=== PATIENT | female | born 1960 | race Caucasian/White ===

== ENCOUNTER 2024-06-14 08:25 | Day surgery (SDC) | payer MEDICARE, MEDICAID, SELFPAY ==
[2024-06-07 10:32] VITALS: BMI 44.3
[2024-06-14] VITALS (14 sets, daily range): BP systolic 102–135; BP diastolic 49–84; PULSE 60–71; RESP 14–22; TEMP 36.1–36.6; O2SAT 94–100; BMI 45.2; BMI 48.2
--- NOTE | 2024-06-14 06:00 | DI.RAD.S_ITS ---
PROCEDURE: XR SHOULDER LT 1V INDICATIONS: post-op TECHNIQUE: 1 views of the shoulder were acquired. COMPARISON: O Outside Film, CR, XR SHOULDER 2+ VIEWS RIGHT, 03/20/2024, 15:11. FINDINGS: Evaluation is markedly limited on a single view. Within these limitations, left reverse total shoulder arthroplasty hardware is intact with anatomic alignment. Postsurgical changes about the left shoulder. Left lung volume is low with atelectasis. IMPRESSION: Evaluation is markedly limited on a single view. Within these limitations, left reverse total shoulder arthroplasty hardware is intact with anatomic alignment. Dictated by: Rashard Redmond M.D. on 06/14/2024 at 16:22 Approved by: Rashard eRdmond M.D. on 06/14/2024 at 16:24
[2024-06-14] MEDS: LACTATED RINGERS 1,000 ML 42 ML IV ×2 (09:50→13:27)
--- NOTE | 2024-06-14 11:10 | PM.PREOP ---
Pre-operative Note Interval Note History & Physical reviewed/Exam performed by Physician: Yes Changes to H&P: No
--- NOTE | 2024-06-14 11:11 | PM.PREOP ---
Pre-operative Note Interval Note History & Physical reviewed/Exam performed by Physician: Yes Changes to H&P: No
--- NOTE | 2024-06-14 12:13 | SUR.PREOP ---
Block start time [1148] . Monitoring initiated and maintained throughout procedure. Oxygen and medications given per anesthesiologist instructions. Patient remained stable throughout procedure, no adverse reactions noted. Block end time [1210]. Block unsuccessful. No medications given
[2024-06-14] MEDS: CEFAZOLIN VIAL 3 GM in SODIUM CHLORIDE 0.9% 100 ML IV (12:21)
[2024-06-14] MEDS: TRANEXAMIC ACID 1,000 MG VIAL 1000 MG INJ (12:49)
--- NOTE | 2024-06-14 13:08 | SUR.OPER ---
Beach chair with Malinan/Kalen shoulder positioner. Lower body on padded OR bed. Head in foam padded head cradle, secured with straps. Non-operative arm padded with gel and secured across abdomen with tape. Pillow under knees. Safety belt at thigh. Cloth tape over blanket over lower legs. Lower legs secured with tape. Heels free floating.
[2024-06-14] MEDS: ROPIVACAINE/EPI/CLONIDINE/KET 50 ML SYRINGE INJ (13:28)
--- NOTE | 2024-06-14 14:37 | P.OP_ITS ---
Operative Date/Time/Diagnoses Date of procedure: 06/14/24 Time of procedure: 14:37 Pre-op diagnosis: Left glenohumeral arthritis Post-op diagnosis: same Procedure & Clinicians Procedure: Left reverse total shoulder arthroplasty Same procedure as scheduled: Yes Indications: Indications: This is a 64-year-old female who has severe glenohumeral arthritis. Symptoms have been present for years, insidious onset. Patient has failed a reasonable attempt at conservative therapy. After extensive discussion in clinic, they wished to go forward with surgery. Risks and benefits were described including the risk of infection, bleeding, damage to internal structures including nerves. We also discussed the risk of failure of surgery and the need for revision surgery as well as the risk of anesthesia. The patient expressed understanding with these risks and wished to go forward with surgery. Surgeon: Ronald Johnson [employer] Testing: Shanna Weiss Anesthesia Type: General Operative Notes Findings: Findings: Osteoarthritis of the glenoid and humeral head as well as a defient rotator cuff as noted on preoperative imaging and under direct visualization Closure Type: primary Specimen(s): none sent Prosthetic devices, grafts, tissues, transplants, or devices: Tornier implants Base plate: standard 25 mm, 15 degree wedge Glenosphere: Standard 36 mm Stem: Perform 3 Poly: +0 concentric Estimated Blood Loss (mL): 100 Blood products transfused: none Procedure in detail: Patient was seen in the preoperative holding unit. The correct left shoulder was identified and marked with my initials. Again we discussed the risks and benefits of surgery and they wished to go forward with surgery. The patient was brought back to the operating room and placed supine on the operating table. Smooth endotracheal intubation was performed by anesthesia. All prominences were padded and they were placed into the beach chair position. Intravenous antibiotics were given. The left shoulder was then prepped with the standard sterile preparation and draping. A time-out was then performed in my initials were again identified on the correct shoulder. 1 g of IV tranexamic acid was given. A standard deltopectoral incision was made. Skin flaps were made. The cephalic vein was identified and retracted laterally. This was protected throughout the remainder of the case. Sharp dissection was made along the deltoid, subacromial and subcoracoid space to release adhesions. The conjoined tendon was identified and the axillary nerve was palpated and continuous using the tug test. It was protected throughout the remainder of the case. A brown retractor was placed underneath the deltoid muscle and a darach retractor underneath the conjoint tendon. The subscapularis muscle was ntoed to be intact. The anterior circumflex artery and associated veins on the lower border of the subscapularis were identified and tied off using 0-Vicryl. The biceps tendon was identified in the bicipital groove. This was released from its sheath, and taken from its origin on the glenoid and tied into the pectoralis tendon for a solid tenodesis. We then began a subscapularis peel. The subscapularis was tagged with an Ethibond suture. A 360 degree circumferential release of the subscapularis was performed with protection of the axillary nerve. The coracohumeral ligament was released at the base of the coracoid. The shoulder was then dislocated. Osteophytes were removed using combination of rongeur and osteotome. The rotator cuff was noted to be insufficient. An intramedullary guide was used set at version of 20?. Using an oscillating saw a conservative humeral head cut was made. Impaction reamers were reamed up to a size 3 stem with a built-in angle 135?. A neck protector was placed. Attention was then turned to the glenoid. After retracting the humeral head posteriorly a circumferential release was performed of the capsule with protection of the axillary nerve. The labrum was then released starting at the biceps anchor and going around the rim a small amount of triceps was released from the inferior glenoid. A center guide pin was then placed using the guide, followed by Reamer. After adequate cartilage was removed the boss was reamed and the centeral hole was drilled and measured. The base plate was then implanted and screwed into place. The peripheral screws were then sequentially drilled, measured, and placed. A 36 standard glenosphere was then selected and screwed into place onto the base plate. Turning back to the humerus, the humeral head was delivered and trialed with a 0 concentric. The arm was taken through range of motion and this was felt to be stable. The trial was then removed and a dilute Betadine wash was then performed with 1 L of sterile saline. Before placing the final implant, drill holes were made in the bicipital groove for the subscapularis repair, and sutures were passed through the drill holes. The final stem was then impacted into the humerus. The shoulder was then reduced and again brought through range of motion and was felt to be stable. The subscapularis was then repaired using a modified racking hitch with nice loupes. The skin was closed with 2-0 vicryl and 3-0 Monocryl followed by Aquacel dressing. Patient was awoken from anesthesia and brought back to the postoperative recovery unit without issue. They were placed into a sling. Assisting participation: This operation could not have been safely performed (without compromising the technical results or length of the procedure) without the assistance of a skilled surgical technology instructor. The surgical technology instructor was medically necessary for proper positioning, retraction and manipulation of instruments, proper exposure, graft prep, and manipulation of tissue. Complications: none Post-operative Condition: stable Disposition: PACU Plan for aftercare: Postoperative instructions: Sling to remain on for 6 weeks. No external rotation past neutral for 6 weeks. Okay for the sling to come off for shower. Okay to shower over the Aquacel dressing. If any water gets underneath the dressing, remove the dressing. First postoperative visit in 2 weeks.
[2024-06-14] MEDS: ONDANSETRON 4 MG/2 ML INJ IV (14:58)
[2024-06-14] MEDS: hydrOXYzine 50 MG/ML INJ 25 MG IM (14:58)
[2024-06-14] MEDS: OXYCODONE IR 5 MG TABLET PO ×3 (14:58→17:58)
--- NOTE | 2024-06-14 17:18 | SUR.PHASEII ---
Dr Johnson aware that patient requiring oxygen via nc at 2l to keeps saturation above 90. Placed transfer orders and floor aware that patient will stay overnight. Up to floor and report received by Syd PARTIDA. No additional needs required
[2024-06-14] MEDS: LACTATED RINGERS 1,000 ML 100 ML IV (17:25)
[2024-06-14] MEDS: VENLAFAXINE 37.5 MG TABLET 112.5 MG PO (20:36)
[2024-06-14] MEDS: PRAMIPEXOLE 0.25 MG TABLET 0.5 MG PO (20:36)
[2024-06-14] MEDS: RANOLAZINE 500 MG TAB.ER.12H 1000 MG PO (20:36)
[2024-06-14] MEDS: CEFAZOLIN VIAL 1 GM in SODIUM CHLORIDE 0.9% 100 ML IV (20:37)
[2024-06-14] MEDS: PANTOPRAZOLE DR 20 MG TABLET PO (20:37)
[2024-06-14] MEDS: GABAPENTIN 400 MG CAPSULE PO (20:37)
[2024-06-14] MEDS: ASPIRIN EC 81 MG TABLET PO (20:37)
[2024-06-14] MEDS: glipiZIDE 5 MG TABLET PO (20:37)
[2024-06-14] MEDS: METFORMIN HCL 500 MG TABLET 1000 MG PO (20:37)
[2024-06-14] MEDS: ATORVASTATIN 20 MG TABLET PO (20:37)
[2024-06-14] MEDS: SENNOSIDES 8.6 MG TABLET 17.2 MG PO (20:37)
[2024-06-14] MEDS: DOCUSATE 100 MG CAPSULE PO (20:37)
[2024-06-14] MEDS: CIPROFLOXACIN 250 MG TABLET PO (20:37)
[2024-06-14] MEDS: ACETAMINOPHEN 325 MG TABLET PO (23:30)
[2024-06-14] MEDS: TRAMADOL 50 MG TABLET PO (23:30)
[2024-06-15] MEDS: CEFAZOLIN VIAL 1 GM in SODIUM CHLORIDE 0.9% 100 ML IV (02:57)
[2024-06-15] MEDS: LACTATED RINGERS 1,000 ML 100 ML IV (02:57)
[2024-06-15 05:19] LABS: Add Manual Diff / Slide Review NO; Basophils Absolute Auto 100 /uL (0-100); Basophils Percent Auto 0.4 % (0-2); Eosinophils Absolute Auto 0 /uL (0-450); Eosinophils Percent Auto 0.1 % (2-4); Hematocrit 29.3 % (36-46); Hemoglobin 9.5 g/dL (12.0-16.0); Lymphocytes Absolute Auto 800 /uL (1100-4500); Lymphocytes Percent Auto 4.5 % (25-40); Mean Corpuscular HGB Conc 32.5 % (30-36); Mean Corpuscular Hemoglobin 27.5 PG (26-34); Mean Corpuscular Volume 84.5 fL (80-100); Monocytes Absolute Auto 800 /uL (0-900); Monocytes Percent Auto 4.7 % (3-14); Neutrophils Absolute Auto 15600 /uL (1500-7000); Neutrophils Percent Auto 90.3 % (50-75); Platelet Count 252 X10^3/uL (150-400); Red Blood Cell Count 3.47 X10^6/uL (4.0-5.2); Red Cell Distribution Width 15.3 % (11.6-14.8); White Blood Cell Count 17.3 X10^3/uL (4.5-11.0)
[2024-06-15 05:32] LABS: Blood Urea Nitrogen 25 mg/dL (7-17); Calcium 8.5 mg/dL (8.4-10.2); Carbon Dioxide 20 mmol/L (22-32); Chloride 104 mmol/L (98-107); Estimated Glomerular Filt Rate 59 mL/min (>60); Glucose 219 mg/dL (80-110); HEMOLYSIS < 15 (0-50); Sodium 133 mmol/L (137-145)
[2024-06-15 05:38] LABS: Potassium 5.5 mmol/L (3.4-5.1)
[2024-06-15] MEDS: OXYCODONE IR 5 MG TABLET PO ×4 (05:57→15:48)
--- NOTE | 2024-06-15 06:16 | PC.NURSE ---
Oxycodone was placed on hold on 06/14. Contacted [facility] regarding this medication and they recommended contacting the MD to find out if it's ok to give. Dr. Aquino, chronometer tester for Dr. Johnson, ok'd to give medication.
[2024-06-15 07:00] VITALS: BP 129/78; PULSE 78; RESP 16; TEMP 36.2; O2SAT 98
[2024-06-15 08:30] VITALS: BP 129/68; PULSE 78
[2024-06-15] MEDS: DOCUSATE 100 MG CAPSULE PO (08:30)
[2024-06-15] MEDS: METOPROLOL ER 50 MG TABLET PO (08:30)
[2024-06-15] MEDS: RANOLAZINE 500 MG TAB.ER.12H 1000 MG PO (08:30)
[2024-06-15 08:31] VITALS: BP 129/68; PULSE 78
[2024-06-15] MEDS: VENLAFAXINE 37.5 MG TABLET 112.5 MG PO (08:31)
[2024-06-15] MEDS: EZETIMIBE 10 MG TABLET PO (08:31)
[2024-06-15] MEDS: AMLODIPINE 5 MG TABLET 10 MG PO (08:31)
[2024-06-15] MEDS: LOSARTAN 50 MG TABLET 100 MG PO (08:31)
[2024-06-15 08:32] VITALS: BP 129/68; PULSE 78
[2024-06-15] MEDS: ACYCLOVIR 400 MG TABLET 800 MG PO (08:32)
[2024-06-15] MEDS: carvediloL 12.5 MG TABLET 25 MG PO (08:32)
[2024-06-15] MEDS: ACETAMINOPHEN 325 MG TABLET PO ×2 (08:32→15:49)
[2024-06-15] MEDS: glipiZIDE 5 MG TABLET PO (08:32)
[2024-06-15] MEDS: CIPROFLOXACIN 250 MG TABLET PO (08:32)
[2024-06-15] MEDS: PANTOPRAZOLE DR 20 MG TABLET PO (08:32)
[2024-06-15] MEDS: ISOSORBIDE MONONITRATE ER 30 MG TABLET 120 MG PO (08:32)
[2024-06-15] MEDS: polyethylene glycoL 3350 17 GM POWD.PACK PO (08:33)
[2024-06-15] MEDS: ASPIRIN EC 81 MG TABLET PO (08:33)
[2024-06-15 08:56] VITALS: PULSE 77; RESP 14; O2SAT 99
[2024-06-15] MEDS: ALBUTEROL 2.5 MG/3 ML NEB (ADULT) INH (08:56)
--- NOTE | 2024-06-15 11:40 | PT.IIE ---
Current Diagnoses Sleep apnea, unspecified (06/14/24) Primary osteoarthritis, left shoulder (06/14/24) Surgery Performed Operation Date: 06/14/24 10:15 Actual Procedures p Total Shoulder Arthroplasty - Reverse with biceps tenodesis(Left) - Ronald Johnson MD Surgical History (Last Updated 06/05/24 @ 12:56 by Sonya Busby, RN) History of cardiac catheterization History of carpal tunnel release of both wrists History of surgery Hx of foot surgery Hx of heart artery stent (08/2017) Hx of repair of right rotator cuff Hx of right mastectomy (2012) Hx of tubal ligation Medical History (Last Updated 06/07/24 @ 10:36 by Sonya Busby, RN) Breast cancer, right CAD (coronary artery disease) Chronic pain syndrome Depression Diabetes Diabetic polyneuropathy GUTIERRES (dyspnea on exertion) Dyslipidemia Fibromyalgia GERD (gastroesophageal reflux disease) History of chest pain History of COVID-19 (~2021) HTN (hypertension) MANSI on CPAP Osteoarthritis Palpitations PSVT (paroxysmal supraventricular tachycardia) PTSD (post-traumatic stress disorder) Recurrent cold sores RLS (restless legs syndrome) Physical Therapy Inpatient Evaluation/Re-Eval M1 PT/OT-IP Prior Functional Status Start: 06/15/24 08:30 Freq: NEEDED Status: Active Protocol: Document 06/15/24 11:40 DLM (Rec: 06/15/24 12:16 DLM [id number]) Medical Review Prior Functional Status Medical History Reviewed Yes Diet/Fluid Consistency Regular Communication WNL Mobility and Gait Independent gait with cane, has bilateral knee pain and can not feel her feet, she reports right knee catches sometimes. Her distances of gait are limited by her knee pain Activities of Daily Living and IADL's Assisted by her Daughter Social History Household Members children Living Arrangements House Number of Floors (Floors) One Floor Number of Stairs To Enter/Railing? ramp Home Environment Standard Height Toilet,High Toilet Home Equipment Straight Cane,Lift Recliner, Bed Rails Additional Social History Comment she gets out of bed on left side with rail M2 PT-IP Current Condition Start: 06/15/24 08:30 Freq: NEEDED Status: Active Protocol: Document 06/15/24 11:40 DLM (Rec: 06/15/24 12:16 DLM [id number]) Physical Therapy Current Condition Current Condition Evaluation Date 06/15/24 Treatment Diagnosis left reverse total shoulder arthroplasty Onset Date 06/14/24 M3 PT-IP Subjective Start: 06/15/24 08:30 Freq: NEEDED Status: Active Protocol: Document 06/15/24 11:40 DLM (Rec: 06/15/24 12:16 DLM [id number]) Subjective Physical Therapy Visit Type Type Initial Evaluation Visit Start Time 11:00 Visit Stop Time 11:40 Notes 40 min Number of SEAT BUILDER Visits 0 Physical Therapy Visit Comments Patient Comments Her Daughter helps her at home . She has a lift recliner she can stay in at home. She has out-pt Physical Therapy scheduled for after discharge. Patient Goals Go home with family help. Therapy Pain Assessment Pain When Pain Assessed At Rest Pain Present Pain Present Pain Reported Location Left Arm Intensity 7 Scale Used Numeric (0 - 10) Description Aching,Radiating,Tender Pain Behaviors Facial Grimacing,Guarding Pain Management Techniques Apply Cold,Re-positioning, Timing of Activity with Medications M4 PT-IP Mobility and Gait Start: 06/15/24 08:30 Freq: NEEDED Status: Active Protocol: Document 06/15/24 11:40 DLM (Rec: 06/15/24 12:16 DLM [id number]) PT-Bed Mobility Assessment Sit to Supine Sit to Supine Independent Scooting Scooting to Edge of Bed Independent PT-Transfer Assessment Sit to and From Stand Sit to and from Stand Standby Assistance,Use of Upper Extremities Equipment Transfer Assistive Device Gait Belt Transfers Transfer Destination Bed,Toilet Transfer Technique Stand Step Pivot Transfer Ability Level of Assist Contact Guard Assistance,Use of Upper Extremities Comments Mobility Comments Pt up in recliner at the start of this visit. She gets out of the left side of bed at home so plans to use her lift recliner at discharge. Pt up to toilet to urinate during this visit. She needs min assist to get out of the recliner but only CG/SBA to stand up from the bed or the toilet with grab bar on wall. She does not have her cane present at the hospital. Gait Assessment Gait Gait Assistance Required: Contact Guard Assist,Minimum Assistance Distance (Feet) 60 Assistive Devices Assistive Device Gait Belt Gait Deviations General Gait Pattern Antalgic,Wide Based Gait Factors Limiting Gait Function Factors Limiting Gait Function Decreased Activity Tolerance, Decreased Sensation,Pain,Poor Balance Comments Gait Comments She needs hand held assist since she does not have her cane. She can also hold the rail on the bed or the wall of the bathroom for support. No light-headedness nor nausea during this visit. She ambulated to and from the toilet and did two laps to the curry and back with seated rest break between gait trials . Pt returned to the bed to rest after activity. Stair Climbing Assessment Comments Stair Climbing Comments she uses a ramp to enter the house PT-Balance Assessment Sitting Balance and Reactions Static Sitting Balance Ability Normal Dynamic Sitting Balance Ability Normal Standing Balance and Reactions Static Standing Balance Ability Good Dynamic Standing Balance Ability Fair M5 PT-IP Objective Assessments Start: 06/15/24 08:30 Freq: NEEDED Status: Active Protocol: Document 06/15/24 11:40 DLM (Rec: 06/15/24 12:16 DLM [id number]) Orientation Orientation/Cognition Level of Alertness Alert Orientation Name,Age,Birthday,Month,Date, Year,Day of Week,Place, Situation Language Function Ability No Deficits Noted Safety Awareness Understands Safety Issues Memory Description No Deficits Noted Gross Range of Motion Upper Extremity ROM Assessment Left Impaired Impairments post-op precautions with UE in sling, no ROM of shoulder attempted this visit Lower Extremity ROM Assessment Within Functional Limits Impairments knee pain with ROM bilaterally Strength Upper Extremity Strength Assessment Left Impaired Shoulder no functional use post-op with sling in place Elbow able to hang it at side, needs assist to flex elbow with pain reported Wrist can move actively Hand can move actively Lower Extremity Strength Assessment Within Functional Limits Knee hx of bilateral knee pain with arthritic joint changes, effects sit to richie Coordination Assessment Gross Coordination Gross Coordination WNL Sensation Assessment Sensation Gross Sensation Right UE Impaired,Left UE Impaired,Right LE Impaired, Left LE Impaired Sensation Description Numbness Comments Sensation Comments hx of neuropathy with numbness in her feet and intermittently in her finger tips, pt reports she can not feel the floor. No numbness reported in left hand at this time. Muscle Tone Muscle Tone WNL Yes M6 PT-IP Treatment Start: 06/15/24 08:30 Freq: NEEDED Status: Active Protocol: Document 06/15/24 11:40 DLM (Rec: 06/15/24 12:16 DLM [id number]) Physical Therapy Treatment Education Education Provided Precautions,Weight Bearing Status,Safety Other Treatments Other Treatment Performed educated pt in left shoulder precautions, adjusted sling for comfort and better positioning, passive elbow flexion with UE at side, assisted elbow flexion ROM as tolerated by pain, pt moved wrist and hand actively M7 PT-IP Assessment and Plan Start: 06/15/24 08:30 Freq: NEEDED Status: Active Protocol: Document 06/15/24 11:40 DLM (Rec: 06/15/24 12:16 DLM [id number]) PT Summary Assessment and Plan Potential Rehabilitation Potential Good Status of Condition at Evaluation Evolving Summary Impairments Pain,ROM,Strength,Balance, Sensation,Bed Mobility, Transfers,Gait,Activity Tolerance Progress Towards Goals Safe For Discharge Assessment Summary Claudia is alert and sitting up in the recliner this visit. She got up earlier today with nursing for breakfast. She describes bilateral knee pain that effects her gait. She uses a cane at baseline. She was able to ambulate with hand held assist this visit. Pt returned to bed to rest after activity. Positioned left UE to manage her pain and applied ice pack. She appears safe to discharge home today with assist from her Daughter who is her caregiver. Recommend she use her lift recliner instead of the bed until she can progresses to safely get out of bed on left side. Also recommend she use her cane for gait to decrease her fall risks. No further skilled Physical Therapy needed during this admission. Reviewed case with Occupational Therapy for continuity of care. Frequency of Treatment Frequency Of Treatment Discharge Treatment Plan Other Recommendations and Next Treatment training completed this visit Focus Precautions Shoulder Precautions Sling,Internal Rotation to Body,No External Rotation,No Abduction Brace sling in place left shoulder, no active use of left shoulder post-op Other Precautions fall risk due to arthritic knee joints and decreased sensation in feet Weight Bearing Status Weight Bearing Status Non-Weight Bearing Allowed Weight Bearing Amount (enter % left shoulder or #) (%) Recommendations To Nursing Amount of Assist Needed 1 Person Assist Discharge Recommendations PT Discharge Recommendations Home with Assistance, Outpatient PT Other Discharge Recommendations Her Daughter is able to assist her per patient Transportation Needs at Discharge Private Vehicle
--- NOTE | 2024-06-15 13:52 | OT.IP.EVAL ---
Current Diagnoses Sleep apnea, unspecified (06/14/24) Primary osteoarthritis, left shoulder (06/14/24) Surgery Performed Operation Date: 06/14/24 10:15 Actual Procedures p Total Shoulder Arthroplasty - Reverse with biceps tenodesis(Left) - Ronald Johnson MD Past Medical History (Last Updated 06/07/24 @ 10:36 by Sonya Busby, RN) Breast cancer, right CAD (coronary artery disease) Chronic pain syndrome Depression Diabetes Diabetic polyneuropathy GUTIERRES (dyspnea on exertion) Dyslipidemia Fibromyalgia GERD (gastroesophageal reflux disease) History of chest pain History of COVID-19 (~2021) HTN (hypertension) MANSI on CPAP Osteoarthritis Palpitations PSVT (paroxysmal supraventricular tachycardia) PTSD (post-traumatic stress disorder) Recurrent cold sores RLS (restless legs syndrome) Surgical History (Last Updated 06/05/24 @ 12:56 by Sonya Busby, RN) History of cardiac catheterization History of carpal tunnel release of both wrists History of surgery Hx of foot surgery Hx of heart artery stent (08/2017) Hx of repair of right rotator cuff Hx of right mastectomy (2012) Hx of tubal ligation Occupational Therapy Inpatient Evaluation/Re-Eval M1 PT/OT-IP Prior Functional Status Start: 06/15/24 08:30 Freq: NEEDED Status: Active Protocol: Document 06/15/24 13:54 [facility] (Rec: 06/15/24 14:08 [facility] [id number]) Medical Review Prior Functional Status Medical History Reviewed Yes Diet/Fluid Consistency Regular Communication WNL Mobility and Gait Independent gait with cane, has bilateral knee pain and can not feel her feet, she reports right knee catches sometimes. Her distances of gait are limited by her knee pain Activities of Daily Living and IADL's Assisted by her Daughter Social History Household Members children Living Arrangements House Number of Floors (Floors) One Floor Number of Stairs To Enter/Railing? ramp Home Environment Standard Height Toilet,High Toilet Home Equipment Straight Cane,Lift Recliner, Bed Rails Additional Social History Comment she gets out of bed on left side with rail M2 OT-IP Current Condition Start: 06/15/24 13:54 Freq: Status: Active Protocol: Document 06/15/24 13:54 [facility] (Rec: 06/15/24 14:08 [facility] [id number]) Occupational Therapy Current Condition Current Condition Evaluation Date 06/15/24 Treatment Diagnosis S/P L TSA Diagnosis Onset Date 06/14/24 Post Operative Precautions Shoulder Precautions Sling,No External Rotation Weight Bearing Status Weight Bearing Status Non-Weight Bearing M3 OT- IP Subjective and Pain Start: 06/15/24 13:54 Freq: Status: Active Protocol: Document 06/15/24 13:54 [facility] (Rec: 06/15/24 14:08 [facility] [id number]) OT- Subjective Occupational Therapy Visit Type Type Initial Evaluation Visit Start Time 13:25 Visit Stop Time 13:52 Occupational Therapy Visit Comments Patient Comments Pt agreed to get up to brush her teeth. Patient/Caregiver Goals TO go home. OT Pain Assessment Pain When Pain Assessed During Mobility Pain Present Pain Present Pain Reported Location Left Arm Intensity 6 Scale Used Numeric (0 - 10) M4 OT- IP ADL's Start: 06/15/24 13:54 Freq: Status: Active Protocol: Document 06/15/24 13:54 [facility] (Rec: 06/15/24 14:08 [facility] [id number]) OT [id number] Comments OT Self-Feeding Comments set-up assist OT ADL-Grooming General Evaluation Grooming Ability Standby Assistance Areas Needing Assistance Retrieving/Set-up of Grooming Items Comments OT Grooming Comments Able to do whiel standing at the sink. OT ADL-Oral Care General Eval Oral Care Ability Independent OT ADL-Dressing General Eval Upper Body Dressing Ability Maximum Assistance Lower Body Dressing Ability Maximum Assistance Comments OT Dressing Comments MAX A for sling management needs and to readjust the straps. Pt's daughter to assist with all ADL needs at home. OT ADL-Toileting Comments OT Toileting Comments Pt states able to use a bidet at daugther's house. Pt may benefit from a BSC as has to go to the bathroom often at night. OT ADL-Bathing Comments OT Bathing Comments Pt to have assist. M5 OT- IP IADL's Start: 06/15/24 13:54 Freq: Status: Active Protocol: Document 06/15/24 13:54 [facility] (Rec: 06/15/24 14:08 [facility] [id number]) OT-Instrumental Activities of Daily Living Home Safety Awareness Awareness of Need for Assistance at Home Good Awareness Ability to Problem Solve Emergency Able to Problem Solve Situations Medication Management Medication Management Caregiver Administers Money Management Money Management Caregiver Provides Assistance Meal Preparation Meal Preparation Caregiver Provides Assist Postpartum Nurse Postpartum Nurse Caregiver Provides Assist M6 OT- IP Functional Cognition Start: 06/15/24 13:54 Freq: Status: Active Protocol: Document 06/15/24 13:54 [facility] (Rec: 06/15/24 14:08 [facility] [id number]) Cognitive Factors Limiting Selfcare Function Cognitive Ability Level of Alertness Alert Patient Orientation Name,Age,Birthday,Month,Date, Year,Day of Week,Place, Situation Attention Span Ability Capable of Focused Attention, Capable of Sustained Attention Ability to Follow Commands Able to Follow One Step Commands Cognitive Comments Cognitive Assessment Comments Pt able to follow commands for ADL and mobility needs. OT- Vision and Hearing OT- Hearing Assessment OT- Hearing Assessment WFL OT- Vision Assessment Visual Acuity Glasses For Reading Vision Assessment Comments Pt eyes delay when tracking. Pt states occasionally gets dizzy looking to the left at times. M7 OT- IP Mobility and Balance Start: 06/15/24 13:54 Freq: Status: Active Protocol: Document 06/15/24 13:54 [facility] (Rec: 06/15/24 14:08 [facility] [id number]) OT- Bed Mobility Assessment Supine to Sit Supine to Sit Assist Moderate Assistance OT-Transfer Assessment Sit to and From Stand Sit to and from Stand Minimal Assistance Transfers Transfer Ability Minimal Assistance Technique Transfer Destination Bed,Chair Transfer Technique Stand Step Pivot Devices Transfer Assistive Devices None,Gait Belt Comments Mobility Comments MODA so pt able to pull on the therapist's hand to pull herself up and assist to help get her trunk upright. CATRACHO to stand and KIPNUK assist for right arm to hang unto while walking in the room. Pt states has a cane at home she uses. OT- Balance Assessment Sitting Balance and Reactions Static Sitting Balance Ability Good Dynamic Sitting Balance Ability Good Standing Balance and Reactions Static Standing Balance Ability Good Dynamic Standing Balance Ability Fair M8 OT- IP Objective Assessments Start: 06/15/24 13:54 Freq: Status: Active Protocol: Document 06/15/24 13:54 [facility] (Rec: 06/15/24 14:08 [facility] [id number]) OT Gross Range of Motion Upper Extremity Range of Motion Assessment Right Impaired OT Strength Upper Extremity Strength Assessment Right Impaired M9 OT- IP Assessment and Plan Start: 06/15/24 13:54 Freq: Status: Active Protocol: Document 06/15/24 13:54 [facility] (Rec: 06/15/24 14:08 [facility] [id number]) OT Summary Assessment and Plan Potential Rehabilitation Potential Excellent Analytic Complexity at Evaluation Low Summary OT Impairments Pain,Range of Motion,Strength, Balance,Functional Mobility, Dressing,Toileting,Bathing, Toilet Transfers,Shower Transfers Progress Towards Goals Progressing Toward Goals Assessment Summary Pt low complexity and main barriers are pain, decreased balance, and will continue to need her daughter to assist with all her ADL and IADl needs. Able to readjust the sling for the pt and go over dressing needs. Pt to go home with 16/05 available assist and outpt PT. Pt looking to go home today. Pt would benefit from a BSC. Frequency of Treatment Frequency Of Treatment Discharge Discharge Recommendations Transportation Needs at Discharge Private Vehicle
--- NOTE | 2024-06-15 14:18 | CM.DANOTE ---
DCP Assessment Note: Pt is a 64yo female, resident of [place], is admitted for a L reverse TSA. Pt lives in a house with her daughter, son-in-law and grandchildren. Pt's Primary Care Provider is VENKAT Alejo and insurance is [facility] and Medicaid. Reviewed chart and team rounds for pt's medical status and initial discharge needs. DCP met w/patient at bedside; introduced self and role. Patient was found in chair, alert and oriented, cooperative with assessment. Pt confirmed living situation and good support in daughter who is also her in-home caregiver. Pt expressed preference in returning home when medically cleared. Pt declined a need for home health referral at this time. Per PT/OT, pt is being recommended to discharge home with assistance with caregiver. Plan: Anticipating discharge home with family when medically cleared, pt to follow up with outpatient PT. CM team will follow closely for coordination of discharge plans. FABIAN Bowers Discharge Planning/Care Management CM Discharge Assessment Start: 06/15/24 12:33 Freq: Status: Active Protocol: Document 06/15/24 12:33 MW (Rec: 06/15/24 12:34 MW [id number]) Discharge Planning Assessment Assigned Laundromat Manager JOSELINE Castle DPOA/Assigned Designee Name Jojo Alexis Contact Information [phone] Advance Directives? Yes Advance Directives on File No History Provided By Patient,Medical Record Has Patient been admitted in last 30 No days? Prior Living Arrangements House Household Members children Type of transporation used prior to Drives own vehicle admit Independent with ADL's Yes Is patient alert and oriented? Yes Caregiver for Another No DME Already Rented / Owned Cane Discharge Plan Home Referrals Initiated None needed Whiteboard Updated in Patient Room with Yes name and ext. # of Laundromat Manager Comment [phone] Please Provide Date Initial DC 06/15/24 Assessment Was Performed Next Review Type Continued Stay Review
--- NOTE | 2024-06-15 15:34 | P.DS_ITS ---
History of Present Illness History of Present Illness Chief complaint: OPB Narrative: Claudia is a pleasant 64 year old female who is POD#1 s/p left reverse total shoulder arthroplasty by Dr. Johnson. This morning patient states she is doing well, still having severe shoulder pain but feels that oral pain medication can control it well. She has been up once since surgery to walk and urinate, reports she felt good getting up but also felt a little weak and lethargic. Has post-op PT scheduled at [facility]. Lives at home w/ daughter and son in law who are willing and able to aid in patients post-op care. She has her post-op pain Rx at home already. Denies fever, chills, chest pain, SOB, nausea, vomiting. Operative Date/Time/Diagnoses Date of procedure: 06/14/24 Time of procedure: 14:37 Pre-op diagnosis: Left glenohumeral arthritis Post-op diagnosis: same Procedure & Clinicians Procedure: Left reverse total shoulder arthroplasty Same procedure as scheduled: Yes Indications: Indications: This is a 64-year-old female who has severe glenohumeral arthritis. Symptoms have been present for years, insidious onset. Patient has failed a reasonable attempt at conservative therapy. After extensive discussion in clinic, they wished to go forward with surgery. Risks and benefits were described including the risk of infection, bleeding, damage to internal structures including nerves. We also discussed the risk of failure of surgery and the need for revision surgery as well as the risk of anesthesia. The patient expressed understanding with these risks and wished to go forward with surgery. Surgeon: Ronald Johnson Box Office Attendant: Shanna Weiss Anesthesia Type: General Discharge Providers Provider Discharge Date: 06/15/24 Consults: 06/14/24 06:00 Consult to Anesthesiology Routine Comment: Consulting Provider: Anesthesiologist Reason for consultation: Regional block for post operative pain control 06/14/24 16:47 Consult to Discharge Planning Routine Comment: Consult to Occupational Therapy Evaluate & Treat Comment: Physician Instructions: Evaluate and treat Consult to Physical Therapy Evaluate & Treat Comment: Physician Instructions: Evaluate and Treat Discharge provider: Shanna Weiss PA-C Summary Hospital Course Discharge Diagnosis: stable s/p left reverse total shoulder arthroplasty Hospital Course: Hospital course complicated by SOB post-op, now resolved. Pt with known MANSI on CPAP and cardiac hx of 2 stents. Exam Vital Signs (past 8 hours): - 06/15/24 08:30 06/15/24 08:31 06/15/24 08:32 Pulse Rate 78 78 78 Respiratory Rate Blood Pressure 129/68 129/68 129/68 Pulse Oximetry Oxygen Delivery Method 06/15/24 08:56 Pulse Rate 77 Respiratory Rate 14 Blood Pressure Pulse Oximetry 99 Oxygen Delivery Method Room Air Oxygen Delivery Method Room Air Oxygen Flow Rate 2 Narrative Exam Narrative: Patient lying comfortably in bed during our interview today. No acute distress. AOx3, appears tired/sleepy during the interview however. Sling in place. Grossly normal alignment of the LUE with mild global shoulder swelling. 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 Gross sensation intact throughout the LUE. There is some bilateral lower extremity sensory loss, unchanged from prior to surgery, patient has known diabetic neuropathy pre-op. Calves soft and non-tender bilaterally. SCDs are on and functioning. Brisk capillary refill, pulses intact. Post-surgical Aquacel dressing clean, dry and intact over the left anterior shoulder without drainage. Objective Labs 06/15/24 05:04 06/15/24 05:04 Labs: Laboratory Results - last 24 hr 06/15/24 05:04 WBC 17.3 H RBC 3.47 L Hgb 9.5 L Hct 29.3 L MCV 84.5 MCH 27.5 MCHC 32.5 RDW 15.3 H Plt Count 252 Neut % (Auto) 90.3 H Lymph % (Auto) 4.5 L [place] % (Auto) 4.7 Eos % (Auto) 0.1 L Baso % (Auto) 0.4 Neut # (Auto) 46468 H Lymph # (Auto) 800 L [place] # (Auto) 800 Eos # (Auto) 0 Baso # (Auto) 100 Sodium 133 L Potassium 5.5 H Chloride 104 Carbon Dioxide 20 L BUN 25 H Creatinine 1.04 Estimated GFR 59 L BUN/Creatinine Ratio 24.0 H Glucose 219 H Calcium 8.5 PFSH Medical History (Updated 06/07/24 @ 10:36 by Sonya Busby RN) History of COVID-19 (~2021) Chronic pain syndrome Diabetic polyneuropathy Diabetes Recurrent cold sores GERD (gastroesophageal reflux disease) RLS (restless legs syndrome) PTSD (post-traumatic stress disorder) Breast cancer, right Depression Fibromyalgia MANSI on CPAP Palpitations Dyslipidemia HTN (hypertension) CAD (coronary artery disease) Osteoarthritis PSVT (paroxysmal supraventricular tachycardia) History of chest pain GUTIERRES (dyspnea on exertion) Surgical History (Updated 06/05/24 @ 12:56 by Sonya Busby RN) History of surgery Hx of tubal ligation Hx of repair of right rotator cuff Hx of foot surgery History of carpal tunnel release of both wrists History of cardiac catheterization Hx of right mastectomy (2012) Hx of heart artery stent (08/2017) Social History household members: children Smoking Status: Never smoker alcohol intake: former Discharge Assessment & Plan Assessment and Plan Assessment: Left glenohumeral arthritis status post left reverse total shoulder arthroplasty Plan of Treatment: 1) Plan to discharge to home today with daughter pending PT evaluation/able to ambulate safely without weakness/lethargy. 2) Continue multimodal pain management with ice to the shoulder for additional pain control. She has post-op pain meds at home already. 3) ASA b.i.d. for DVT prophylaxis. 4) Start outpatient physical therapy to work on range of motion and mobilit. y 5) Keep dressing intact, clean, dry until 2 week postop appointment. No soaking the incision site in pools or tubs. No topical ointments or creams to the incision site. 6) Follow up at [facility] orthopedics in 2 weeks for a postop appointment and wound check. All patient's questions were answered, they demonstrates understanding and are in agreement with the plan. Call our office if any questions or concerns arise. Discharge Plan Discharge Plan Patient Disposition: Home Discharge orders & Medications Discharge Orders: Discharge (Order); Ordered 06/15/24 Ordered By: Shanna Weiss Prescriptions: New docusate sodium 100 mg Capsule 100 mg PO BID Qty: 30 1RF acetaminophen 500 mg tablet 1,000 mg PO Q8HR Qty: 90 0RF Continued carvedilol 25 mg Tablet 25 mg PO BID Rx Instructions: must administer with a meal/food amlodipine 5 mg Tablet 10 mg PO DAILY acyclovir 400 mg Tablet 800 mg PO DAILY albuterol sulfate 90 mcg/actuation Hfa Aerosol Inhaler 1 inh INHALATION Q6H PRN (Reason: Shortness Of Breath) metformin 500 mg Tablet 1,000 mg PO BEDTIME gabapentin 400 mg Capsule 400 mg PO BEDTIME isosorbide mononitrate 120 mg Tablet Extended Release 24 Hr 120 mg PO DAILY pramipexole 0.5 mg Tablet 0.5 mg PO BEDTIME venlafaxine 37.5 mg Tablet 112.5 mg PO BID losartan 100 mg Tablet 100 mg PO DAILY fluticasone propionate 50 mcg/actuation D Lo,Suspension 2 spray INTRANASAL DAILY PRN (Reason: Allergy Symptoms) Rx Instructions: administer into each nostril glipizide 5 mg Tablet 5 mg PO BID ranolazine 1,000 mg Tablet Extended Release 12 Hr 1,000 mg PO BID omeprazole 20 mg Tablet,Delayed Release (Dr/Ec) 20 mg PO BID cetirizine 10 mg Capsule 10 mg PO BEDTIME PRN (Reason: Seasonal allergies) Trulicity 0.75 mg/0.5 mL Pen Injector 0.75 mg SUBCUT WHALEN@0900 metoprolol succinate 50 mg Tablet Extended Release 24 Hr 50 mg PO DAILY ezetimibe 10 mg tablet 10 mg PO DAILY ciprofloxacin HCl [Cipro] 500 mg Tablet 250 mg PO BID Patient Comments: Started 5 day course on 06/12/24 for UTI Changed aspirin 81 mg Tablet,Delayed Release (Dr/Ec) 81 mg PO BID Qty: 90 0RF tramadol 50 mg Tablet 50 mg PO Q6H Qty: 30 0RF Discontinued acetaminophen 500 mg Tablet 500 mg PO Q6H PRN (Reason: Pain) Medication counseling provided by Pharmacist: Yes Follow up/Referrals: Ronald Johnson MD [Physician] - (Follow up at [facility] as scheduled in 2 weeks. ) Diet/Activity/Treatments Diet: Diet as Tolerated Activity: Remain in sling with no external rotation past neutral for 6 weeks. Nonweightbearing to the surgical extremity. Cold/Heat Therapy: Ice to the shoulder for additional pain control Skin/Wound/Dressing Care Report to your healthcare provider any signs of infection, such as:: chills, fever, night sweats, unusual drainage and unusual redness Dressing: Keep dressing intact, clean and dry until 2 week post-op appointment. No soaking the incision site in pools or tubs. No topical ointments or creams to the incision site. Visit Report/Discharge Packet Instructions: DI for Prescription Opioid Use, DI for Shoulder Replacement Stand Alone Forms: Patient Portal/API, Surgery Discharge Discharge Data Attending Provider: Ronald Johnson Quality VTE Deep Vein Thrombosis/Pulmonary Embolism Present on Admission: No
== END 2024-06-15 15:55 | disposition home or self-care (01) ==
LOC: OR 08:28 → AC 08:32
PROVIDERS: Family Provider Family Medicine; Referring Provider Orthopaedic Surgery; Visit Provider Orthopaedic Surgery
PROC: (CPT 23472; principal; 2024-06-14 10:15)
DX: M19.012 Primary osteoarthritis, left shoulder (principal); G47.33 Obstructive sleep apnea (adult) (pediatric); M25.712 Osteophyte, left shoulder
CPT/HCPCS: 23472; 36415; 64415; 73020; 80048; 85025; 94640; 97162; 97165; 97535; C1776; J0330; J0690; J1100; J1170; J2405; J2704; J3410; J7613